=== PATIENT | male | born 1960 | race African-American/Black ===

== ENCOUNTER 2022-03-06 19:49 | Emergency (ER) | payer SELFPAY ==
[~2022-03-06] VITALS: Ht 170.2 cm; Wt 65.8 kg
[~2022-03-06 19:49] MED LIST: ADVAIR 500/501 EA INH; ALBUTEROL SULF8.5 GM; SPIRIVA18 MCG INH
[2022-03-06] MEDS ORDERED: ASPIRIN 325 MG TAB PO ONE (20:00)
[2022-03-06] MEDS ORDERED: METHYLPREDNISOLONE SOD SUCC 125 MG/2ML VIAL IV ONE (20:00)
[2022-03-06] MEDS ORDERED: SODIUM CHLORIDE FLUSH 10 ML SYR IV PRN (20:00)
[2022-03-06] MEDS ORDERED: ALBUTEROL/IPRATROPIUM 3 ML NEB NEB ONE (20:00)
[2022-03-06] MEDS ORDERED: PREDNISONE 20 MG TAB ONE (22:49)
[2022-03-08] MEDS ORDERED: LORATADINE10 MG PO (09:43)
[2022-03-08] MEDS ORDERED: VENTOLIN HFA18 GM INH (09:43)
== END 2022-03-06 21:33 | disposition left against medical advice (07) ==
LOC: ER 20:00
DX: R06.00 Dyspnea, unspecified (principal); J44.9 Chronic obstructive pulmonary disease, unspecified; E78.5 Hyperlipidemia, unspecified; F17.210 Nicotine dependence, cigarettes, uncomplicated
CPT/HCPCS: 93005; 99283; J2930; J7512

== ENCOUNTER 2022-03-06 22:11 | Inpatient (IN) | payer SELFPAY ==
[~2022-03-06] VITALS: Ht 170.2 cm; Wt 65.8 kg
[2022-03-06] MEDS ORDERED: SODIUM CHLORIDE FLUSH 10 ML SYR IV PRN (22:17)
[2022-03-06] MEDS ORDERED: METHYLPREDNISOLONE SOD SUCC 125 MG/2ML VIAL IV ONE (22:30)
[2022-03-06] MEDS ORDERED: ALBUTEROL/IPRATROPIUM 3 ML NEB NEB PRN (22:30)
[2022-03-06] MEDS ORDERED: ASPIRIN 325 MG TAB PO ONE (22:30)
[2022-03-06 22:37] LABS: BASOPHILS # (AUTO) 0.1 (0.0-0.1); BASOPHILS % 0.4 % (0.0-1.0); EOSINOPHILS # (AUTO) 0.1 (0.0-0.4); EOSINOPHILS % 1.2 % (0.0-6.0); HEMATOCRIT 47.8 % (38.2-49.6); HEMOGLOBIN 14.4 g/dL (14.0-18.0); LYMPHOCYTES # (AUTO) 1.1 (1.0-3.2); LYMPHOCYTES % 9.5 % (18.0-39.1); MEAN CORPUSCULAR HEMOGLOBIN 28.8 pg (28-32); MEAN CORPUSCULAR HGB CONC 30.1 g/dL (31-35); MEAN CORPUSCULAR VOLUME 95.6 fL (81-99); MONOCYTES # (AUTO) 0.8 (0.2-0.8); MONOCYTES % 6.7 % (4.4-11.3); NEUTROPHILS # (AUTO) 9.5 (2.1-6.9); NEUTROPHILS % 81.8 % (38.7-80.0); PLATELET COUNT 224 x10e3/uL (140-360); RED CELL DISTRIBUTION WIDTH 13.6 % (11.7-14.4)
[2022-03-06 22:44] LABS: INR 0.88; PARTIAL THROMBOPLASTIN TIME 26.8 seconds (23.8-35.5); PROTHROMBIN TIME 12.8 seconds (11.9-14.5)
[2022-03-06] MEDS ORDERED: PREDNISONE 20 MG TAB PO ONE (22:45)
[2022-03-06 22:53] LABS: ALBUMIN 4.1 g/dL (3.5-5.0); ANION GAP 15.7 mmol/L (8-16); CALCIUM 9.6 mg/dL (8.4-10.2); CREATININE, SERUM 1.05 mg/dL (0.72-1.25); POTASSIUM 3.7 mmol/L (3.5-5.1)
[2022-03-06] MEDS ORDERED: ONDANSETRON HCL INJ 2MG/ML 2ML 2 MG/ML VIAL IV PRN (23:45)
[2022-03-06] MEDS ORDERED: ASPIRIN 81 MG CHEW TAB PO ONE (23:45)
[2022-03-07] VITALS (8 sets, daily range): BP systolic 99–137; BP diastolic 69–90
[2022-03-07] MEDS ORDERED: DOCUSATE SODIUM 100 MG CAP PO PRN (01:00)
[2022-03-07] MEDS ORDERED: ONDANSETRON HCL INJ 2MG/ML 2ML 2 MG/ML VIAL IV PRN (01:00)
[2022-03-07] MEDS ORDERED: ACETAMINOPHEN 325 MG TAB PO PRN (01:00)
[2022-03-07] MEDS: ALBUTEROL/IPRATROPIUM 3 ML NEB NEB SCH ×4 (01:20→19:20)
[2022-03-07] MEDS: SALMETEROL/FLUTICASONE 500/50 INH SCH ×2 (06:39→19:00)
[2022-03-07 06:44] LABS: BASOPHILS % 0.3 % (0.0-1.0); HEMATOCRIT 41.3 % (38.2-49.6); HEMOGLOBIN 12.9 g/dL (14.0-18.0); LYMPHOCYTES # (AUTO) 0.6 (1.0-3.2); MEAN CORPUSCULAR HEMOGLOBIN 28.4 pg (28-32); MEAN CORPUSCULAR HGB CONC 31.2 g/dL (31-35); MEAN CORPUSCULAR VOLUME 90.8 fL (81-99); MONOCYTES # (AUTO) 0.1 (0.2-0.8); MONOCYTES % 1.5 % (4.4-11.3); NEUTROPHILS # (AUTO) 6.6 (2.1-6.9); NEUTROPHILS % 89.8 % (38.7-80.0); PLATELET COUNT 184 x10e3/uL (140-360); RED BLOOD COUNT 4.55 x10e6/uL (4.3-5.7); RED CELL DISTRIBUTION WIDTH 13.9 % (11.7-14.4)
[2022-03-07 07:06] LABS: ALBUMIN 3.7 g/dL (3.5-5.0); ALBUMIN/GLOBULIN RATIO 1.1 (0.8-2.0); ANION GAP 11.1 mmol/L (8-16); CALCIUM 8.9 mg/dL (8.4-10.2); CREATININE, SERUM 0.85 mg/dL (0.72-1.25); POTASSIUM 4.1 mmol/L (3.5-5.1)
[2022-03-07 07:12] LABS: CREATINE KINASE MB 3.7 ng/mL (0-5.0)
[2022-03-07] MEDS ORDERED: SALMETEROL/FLUTICASONE 500/50 INH SCH (09:00)
[2022-03-07 13:12] LABS: CLARITY,URINE SL CLOUDY (CLEAR); COLOR,URINE YELLOW (YELLOW); KETONES,URINE NEGATIVE (NEGATIVE); LEUKOCYTE ESTERASE ,URINE NEGATIVE (NEGATIVE); NITRITE,URINE NEGATIVE (NEGATIVE); PROTEIN,URINE DIPSTICK TRACE (NEGATIVE); URINE UROBILINOGEN 1 mg/dL (0.2 - 1)
[2022-03-07 13:13] LABS: AMPHETAMINES SCREEN,URINE NEGATIVE (NEGATIVE); BENZODIAZEPINES SCREEN,URINE NEGATIVE (NEGATIVE); PHENCYCLIDINE SCREEN,URINE NEGATIVE (NEGATIVE)
[2022-03-07 13:17] LABS: BACTERIA,URINE FEW /HPF; EPITHELIAL CELLS,URINE FEW /LPF; RBC,URINE 0-5 /HPF (0-5); WBC,URINE (MAN) 0-5 /HPF (0-5)
[2022-03-07 13:18] LABS: MUCUS,URINE MODERATE (RARE)
[2022-03-07 17:17] LABS: CREATINE KINASE MB 3.8 ng/mL (0-5.0)
[2022-03-08] MEDS: ALBUTEROL/IPRATROPIUM 3 ML NEB NEB SCH ×2 (06:20)
[2022-03-08] MEDS: SALMETEROL/FLUTICASONE 500/50 INH SCH (06:34)
[2022-03-08] MEDS ORDERED: VENTOLIN HFA18 GM INH (09:43)
[2022-03-08] MEDS ORDERED: LORATADINE10 MG PO (09:43)
[2022-03-08] MEDS ORDERED: ONDANSETRON HCL 4 MG ORAL DISINTEGRATING TAB PO PRN (10:15)
== END 2022-03-08 10:38 | disposition home or self-care (01) | DRG 190 ==
LOC: ER 22:16 → ERHOLD 23:48 → MED/SURG 03-07 01:46 → OBSVTOIN 03-07 15:34
PROVIDERS: ADMIT Internal Medicine; ATTEND Internal Medicine
DX: J44.1 Chronic obstructive pulmonary disease with (acute) exacerbation (principal); J96.21 Acute and chronic respiratory failure with hypoxia; E87.20 Acidosis, unspecified; Z99.81 Dependence on supplemental oxygen; E78.5 Hyperlipidemia, unspecified; Z87.891 Personal history of nicotine dependence; Z20.822 Contact with and (suspected) exposure to COVID-19
CPT/HCPCS: 36415; 71045; 80053; 80307; 81001; 82550; 82553; 83605; 83880; 84484; 85025; 85610; 85730; 87040; 93005; 94640; 94799; 99284; G0378

== ENCOUNTER 2022-06-10 14:32 | Inpatient (IN) | payer OTHER ==
[~2022-06-10] VITALS: Ht 170.2 cm; Wt 56.4 kg
[~2022-06-10 14:32] MED LIST changes: +LORATADINE10 MG PO; +VENTOLIN HFA18 GM INH
[2022-06-10] MEDS ORDERED: METHYLPREDNISOLONE SOD SUCC 125 MG/2ML VIAL IV STA (15:12)
[2022-06-10] MEDS ORDERED: ONDANSETRON HCL INJ 2MG/ML 2ML 2 MG/ML VIAL IV STA (15:12)
[2022-06-10] MEDS ORDERED: SODIUM CHLORIDE 0.9% 1000ML 1,000 ML IV STA (15:12)
[2022-06-10] MEDS ORDERED: Morphine 2mg Syringe 2 MG/ML SYR IV STA ×2 (15:12→16:35)
[2022-06-10] MEDS ORDERED: ALBUTEROL/IPRATROPIUM 3 ML NEB NEB ONE (15:15)
[2022-06-10 15:27] LABS: BASOPHILS # (AUTO) 0.1 (0.0-0.1); BASOPHILS % 0.5 % (0.0-1.0); EOSINOPHILS # (AUTO) 0.1 (0.0-0.4); EOSINOPHILS % 0.8 % (0.0-6.0); HEMATOCRIT 44.4 % (38.2-49.6); HEMOGLOBIN 14.2 g/dL (14.0-18.0); LYMPHOCYTES # (AUTO) 1.1 (1.0-3.2); LYMPHOCYTES % 9.1 % (18.0-39.1); MEAN CORPUSCULAR HEMOGLOBIN 29.2 pg (28-32); MEAN CORPUSCULAR VOLUME 91.2 fL (81-99); MONOCYTES # (AUTO) 1.1 (0.2-0.8); NEUTROPHILS # (AUTO) 9.6 (2.1-6.9); NEUTROPHILS % 80.2 % (38.7-80.0); PLATELET COUNT 221 x10e3/uL (140-360); RED BLOOD COUNT 4.87 x10e6/uL (4.3-5.7); RED CELL DISTRIBUTION WIDTH 14.4 % (11.7-14.4)
[2022-06-10 15:38] LABS: INR 1.15; PROTHROMBIN TIME 14.9 seconds (11.9-14.5)
[2022-06-10 15:39] LABS: PARTIAL THROMBOPLASTIN TIME 31.4 seconds (23.8-35.5)
[2022-06-10 15:46] LABS: ALBUMIN/GLOBULIN RATIO 0.9 (0.8-2.0); ANION GAP 13.9 mmol/L (8-16); CALCIUM 9.7 mg/dL (8.4-10.2); MAGNESIUM 1.8 MG/DL (1.3-2.1); POTASSIUM 3.9 mmol/L (3.5-5.1)
[2022-06-10 15:54] LABS: CREATINE KINASE MB 1.6 ng/mL (0-5.0)
[2022-06-10 15:55] LABS: B-TYPE NATRIURETIC PEPTIDE2 55.4 pg/mL (0-100)
[2022-06-10] MEDS ORDERED: IOPAMIDOL 370 MG/ML 100 ML INFUS..BTL INJ ONE (16:30)
[2022-06-10] MEDS ORDERED: Morphine 2mg Syringe 2 MG/ML SYR ONE (16:54)
[2022-06-10] MEDS ORDERED: ALBUTEROL SULFATE HFA 8GM INHALATION AEROSOL INH PRN (17:30)
[2022-06-10] MEDS ORDERED: ALBUTEROL/IPRATROPIUM 3 ML NEB NEB PRN (17:30)
[2022-06-10] MEDS ORDERED: ZOLPIDEM TARTRATE 5 MG TAB PO PRN (17:30)
[2022-06-10] MEDS: SODIUM CHLORIDE 0.9% 1000ML 1,000 ML IV SCH (18:15)
[2022-06-10] MEDS: SALMETEROL/FLUTICASONE 500/50 INH SCH (21:00)
[2022-06-11] VITALS (15 sets, daily range): BP systolic 78–98; BP diastolic 58–68
[2022-06-11] MEDS: SODIUM CHLORIDE 0.9% 1000ML 1,000 ML IV SCH (04:10)
[2022-06-11] MEDS: METHYLPREDNISOLONE SOD SUCC 40 MG/ML VIAL 1ML IV SCH ×2 (05:25→16:16)
[2022-06-11] MEDS: ACETAMINOPHEN 325 MG TAB PO PRN ×2 (08:49→18:46)
[2022-06-11] MEDS: SALMETEROL/FLUTICASONE 500/50 INH SCH ×2 (09:00→21:00)
[2022-06-11] MEDS: TIOTROPIUM 18 MCG INH POWDER INH SCH (09:00)
[2022-06-11 15:18] LABS: CLARITY,URINE CLEAR (CLEAR); COLOR,URINE YELLOW (YELLOW); LEUKOCYTE ESTERASE ,URINE NEGATIVE (NEGATIVE); NITRITE,URINE NEGATIVE (NEGATIVE); PROTEIN,URINE DIPSTICK NEGATIVE (NEGATIVE)
[2022-06-11 15:19] LABS: BACTERIA,URINE FEW /HPF; EPITHELIAL CELLS,URINE FEW /LPF; KETONES,URINE NEGATIVE (NEGATIVE); MUCUS,URINE MANY (RARE); RBC,URINE 0-5 /HPF (0-5); URINE UROBILINOGEN 0.2 mg/dL (0.2 - 1); WBC,URINE (MAN) 0-5 /HPF (0-5)
[2022-06-12] MEDS: METHYLPREDNISOLONE SOD SUCC 40 MG/ML VIAL 1ML IV SCH ×2 (05:56→18:00)
[2022-06-12] MEDS: ACETAMINOPHEN 325 MG TAB PO PRN ×2 (06:05→22:31)
[2022-06-12 06:26] LABS: INR 1.14; PROTHROMBIN TIME 14.8 seconds (11.9-14.5)
[2022-06-12 06:42] LABS: ALBUMIN 2.7 g/dL (3.5-5.0); ALBUMIN/GLOBULIN RATIO 0.8 (0.8-2.0); ANION GAP 10.8 mmol/L (8-16); CALCIUM 8.6 mg/dL (8.4-10.2); CREATININE, SERUM 0.73 mg/dL (0.72-1.25); POTASSIUM 4.8 mmol/L (3.5-5.1)
[2022-06-12] MEDS: TIOTROPIUM 18 MCG INH POWDER INH SCH ×2 (07:57→20:36)
[2022-06-12] MEDS: SALMETEROL/FLUTICASONE 500/50 INH SCH ×2 (09:00→21:00)
[2022-06-12 09:08] LABS: BASOPHILS % 0.1 % (0.0-1.0); HEMOGLOBIN 11.2 g/dL (14.0-18.0); LYMPHOCYTES # (AUTO) 0.4 (1.0-3.2); LYMPHOCYTES % 3.4 % (18.0-39.1); MEAN CORPUSCULAR HEMOGLOBIN 29.1 pg (28-32); MEAN CORPUSCULAR HGB CONC 31.1 g/dL (31-35); MEAN CORPUSCULAR VOLUME 93.5 fL (81-99); MONOCYTES # (AUTO) 0.4 (0.2-0.8); MONOCYTES % 3.5 % (4.4-11.3); NEUTROPHILS # (AUTO) 10.6 (2.1-6.9); NEUTROPHILS % 92.2 % (38.7-80.0); PLATELET COUNT 182 x10e3/uL (140-360); RED BLOOD COUNT 3.85 x10e6/uL (4.3-5.7); RED CELL DISTRIBUTION WIDTH 14.5 % (11.7-14.4)
[2022-06-12 20:30] VITALS: BP 113/92
[2022-06-12 21:00] VITALS: BP 113/92
[2022-06-13 00:35] VITALS: BP 119/82
[2022-06-13 04:14] VITALS: BP 114/81
[2022-06-13] MEDS ORDERED: METHYLPREDNISOLONE SOD SUCC 40 MG/ML VIAL 1ML IV SCH (06:00)
[2022-06-13] MEDS: SALMETEROL/FLUTICASONE 500/50 INH SCH (07:06)
[2022-06-13] MEDS: TIOTROPIUM 18 MCG INH POWDER INH SCH (07:06)
[2022-06-13 07:47] VITALS: BP 108/77
[2022-06-13 09:53] VITALS: BP 108/77
[2022-06-13] MEDS ORDERED: PREDNISONE5 MG PO (10:15)
[2022-06-13] MEDS ORDERED: ACETAMINOPHEN325 M1 PO (10:15)
[2022-06-13] MEDS ORDERED: AZITHROMYCIN250 MG PO (10:15)
[2022-06-13 11:25] VITALS: BP 100/73
== END 2022-06-13 12:01 | disposition home or self-care (01) | DRG 189 ==
LOC: ER 14:50 → ERHOLD 18:09 → ICU 06-11 00:25 → MED/SURG 06-12 20:17
PROVIDERS: ADMIT Internal Medicine; ATTEND Internal Medicine
DX: J96.01 Acute respiratory failure with hypoxia (principal); J44.1 Chronic obstructive pulmonary disease with (acute) exacerbation; N17.9 Acute kidney failure, unspecified; R91.1 Solitary pulmonary nodule; Z53.29 Procedure and treatment not carried out because of patient's decision for other reasons; Z99.81 Dependence on supplemental oxygen; Z87.891 Personal history of nicotine dependence; Z20.822 Contact with and (suspected) exposure to COVID-19
CPT/HCPCS: 36415; 71045; 71260; 80053; 81001; 82550; 82553; 83605; 83735; 83880; 84484; 85025; 85379; 85610; 85730; 87040; 87086; 93005; 94640; 94799; 96360; 99252; 99284; J0456; J0696; J2270; J2405; J2920; J2930; J7030; J7050; Q9967

== ENCOUNTER 2022-08-18 17:59 | Inpatient (IN) | payer OTHER ==
[~2022-08-18] VITALS: Ht 165.1 cm; Wt 54.9 kg
[2022-08-18 00:04] VITALS: BP 108/83; PULSE 104; RESP 15; O2SAT 94
[2022-08-18] MEDS: ALBUTEROL SULF 0.083% NEB SOLN 3 ML NEB NEB SCH (00:25)
[2022-08-18] MEDS: IPRATROPIUM BROMIDE 0.02% 2.5 ML NEB NEB SCH (00:25)
[~2022-08-18 17:59] MED LIST changes: +ACETAMINOPHEN325 M1 PO; +AZITHROMYCIN250 MG PO; +PREDNISONE5 MG PO
[2022-08-18] MEDS ORDERED: SODIUM CHLORIDE 0.9% 1000ML 1,000 ML IV ONE ×2 (18:30→20:15)
[2022-08-18] MEDS ORDERED: METHYLPREDNISOLONE SOD SUCC 125 MG/2ML VIAL IV ONE (18:30)
[2022-08-18] MEDS ORDERED: ALBUTEROL/IPRATROPIUM 3 ML NEB NEB ONE (18:30)
[2022-08-18] MEDS ORDERED: SODIUM CHLORIDE FLUSH 10 ML SYR IV PRN (18:30)
[2022-08-18] MEDS ORDERED: LEVOFLOXACIN 750MG/D5W 150ML 150 ML IV STA (18:33)
[2022-08-18 18:34] LABS: BASOPHILS # (AUTO) 0.1 (0.0-0.1); BASOPHILS % 0.6 % (0.0-1.0); EOSINOPHILS % 0.4 % (0.0-6.0); HEMATOCRIT 40.5 % (38.2-49.6); HEMOGLOBIN 12.8 g/dL (14.0-18.0); LYMPHOCYTES # (AUTO) 0.8 (1.0-3.2); LYMPHOCYTES % 8.9 % (18.0-39.1); MEAN CORPUSCULAR HEMOGLOBIN 28.8 pg (28-32); MEAN CORPUSCULAR HGB CONC 31.6 g/dL (31-35); MONOCYTES # (AUTO) 0.8 (0.2-0.8); MONOCYTES % 8.4 % (4.4-11.3); NEUTROPHILS # (AUTO) 7.3 (2.1-6.9); NEUTROPHILS % 81.3 % (38.7-80.0); PLATELET COUNT 152 x10e3/uL (140-360); RED BLOOD COUNT 4.45 x10e6/uL (4.3-5.7)
[2022-08-18] MEDS ORDERED: LEVOFLOXACIN 750MG/D5W 150ML 150 ML IV ONE (18:41)
[2022-08-18 18:45] LABS: ALBUMIN 3.8 g/dL (3.5-5.0); ANION GAP 15.7 mmol/L (8-16); CALCIUM 9.7 mg/dL (8.4-10.2); CREATININE, SERUM 1.17 mg/dL (0.72-1.25); POTASSIUM 3.7 mmol/L (3.5-5.1)
[2022-08-18] MEDS ORDERED: IOPAMIDOL 370 MG/ML 100 ML INFUS..BTL INJ ONE (19:11)
[2022-08-18 19:20] VITALS: PULSE 106; RESP 21; O2SAT 100
[2022-08-18] MEDS ORDERED: ONDANSETRON HCL INJ 2MG/ML 2ML 2 MG/ML VIAL IV PRN (20:45)
[2022-08-18] MEDS ORDERED: ASPIRIN 81 MG CHEW TAB PO ONE (20:45)
[2022-08-18] MEDS ORDERED: SODIUM CHLORIDE FLUSH 10 ML SYR INJ PRN (20:45)
[2022-08-18 22:00] VITALS: BP 130/59; PULSE 98; RESP 12; TEMP 98.8; O2SAT 93
[2022-08-18 22:30] VITALS: BP 118/83; PULSE 100; RESP 17; TEMP 98.8; O2SAT 96
[2022-08-18 23:00] VITALS: BP 108/83; PULSE 104; RESP 15; O2SAT 94
[2022-08-19] VITALS (22 sets, daily range): BP systolic 87–139; BP diastolic 53–111; PULSE 82–107; RESP 14–22; TEMP 97.7–98.8; O2SAT 88–99
[2022-08-19] MEDS ORDERED: GUAIFENESIN/DEXTROMETHORPHAN LIQD 5 ML UDC NG PRN (00:30)
[2022-08-19] MEDS: IPRATROPIUM BROMIDE 0.02% 2.5 ML NEB NEB SCH ×6 (03:45→23:00)
[2022-08-19] MEDS: ALBUTEROL SULF 0.083% NEB SOLN 3 ML NEB NEB SCH ×6 (03:45→23:00)
[2022-08-19] MEDS: PREDNISONE 20 MG TAB PO SCH ×3 (05:46→20:59)
[2022-08-19] MEDS: Doxycycline IV 100 MG in SODIUM CHLORIDE 0.9% 100 ML IV SCH ×2 (05:46→17:26)
[2022-08-19] MEDS: BUDESONIDE 0.5MG/2 ML NEB INH SCH ×2 (06:30→19:00)
[2022-08-19] MEDS: LORATADINE 10 MG TAB PO SCH (08:20)
[2022-08-19] MEDS: BENZONATATE 100 MG CAP PO SCH ×3 (08:20→20:59)
[2022-08-19] MEDS ORDERED: ENOXAPARIN SOD INJ 40 MG/0.4 ML SYR SC SCH (17:00)
[2022-08-20 01:20] VITALS: BP 129/73; PULSE 79; RESP 18; TEMP 98.1; O2SAT 98
[2022-08-20] MEDS: IPRATROPIUM BROMIDE 0.02% 2.5 ML NEB NEB SCH ×4 (03:00→14:04)
[2022-08-20] MEDS: ALBUTEROL SULF 0.083% NEB SOLN 3 ML NEB NEB SCH ×4 (03:00→14:05)
[2022-08-20 05:31] VITALS: BP 111/74; PULSE 72; RESP 20; TEMP 97.4; O2SAT 100
[2022-08-20] MEDS: PREDNISONE 20 MG TAB PO SCH (06:00)
[2022-08-20] MEDS: Doxycycline IV 100 MG in SODIUM CHLORIDE 0.9% 100 ML IV SCH (06:00)
[2022-08-20 06:46] LABS: CALCIUM 8.7 mg/dL (8.4-10.2); CREATININE, SERUM 0.78 mg/dL (0.72-1.25)
[2022-08-20] MEDS: BUDESONIDE 0.5MG/2 ML NEB INH SCH (07:00)
[2022-08-20 08:13] VITALS: BP 95/74; PULSE 87; RESP 18; TEMP 97.8; O2SAT 95
[2022-08-20] MEDS: BENZONATATE 100 MG CAP PO SCH (09:00)
[2022-08-20] MEDS: LORATADINE 10 MG TAB PO SCH (09:00)
[2022-08-20 09:27] VITALS: BP 95/74; PULSE 87; RESP 18; TEMP 97.8; O2SAT 95
[2022-08-20] MEDS ORDERED: DOXYCYCLINE HY100 MG PO (11:49)
[2022-08-20] MEDS ORDERED: Benzonatate PO (11:49)
[2022-08-20] MEDS ORDERED: PREDNISONE20 MG PO (11:49)
[2022-08-20] MEDS ORDERED: LORATADINE10 MG PO (11:49)
[2022-08-20 13:04] VITALS: BP 113/80; PULSE 89; RESP 18; TEMP 97.8; O2SAT 100
[2022-09-08] MEDS ORDERED: PREDNISONE20 MG PO (09:40)
[2022-09-08] MEDS ORDERED: DOXYCYCLINE HY100 MG PO (09:40)
[2022-09-08] MEDS ORDERED: MIRALAX17 GM PO (09:40)
== END 2022-08-20 14:46 | disposition home or self-care (01) | DRG 190 ==
LOC: ER 18:06 → ERHOLD 20:32 → ICU 21:47 → MED/SURG3 08-19 12:04
PROVIDERS: ADMIT Internal Medicine; ATTEND Internal Medicine
DX: J43.9 Emphysema, unspecified (principal); J96.21 Acute and chronic respiratory failure with hypoxia; N17.9 Acute kidney failure, unspecified; C34.12 Malignant neoplasm of upper lobe, left bronchus or lung; C34.11 Malignant neoplasm of upper lobe, right bronchus or lung; C79.51 Secondary malignant neoplasm of bone; I25.2 Old myocardial infarction; E78.5 Hyperlipidemia, unspecified; R00.0 Tachycardia, unspecified; R74.02 Elevation of levels of lactic acid dehydrogenase [LDH]; R63.4 Abnormal weight loss; Z99.81 Dependence on supplemental oxygen; Z87.891 Personal history of nicotine dependence; Z68.20 Body mass index [BMI] 20.0-20.9, adult; Z20.822 Contact with and (suspected) exposure to COVID-19
CPT/HCPCS: 36415; 71260; 80048; 80053; 83605; 83880; 84484; 85025; 87040; 93005; 94760; 94799; 99285; J1650; J2930; J7030; J7050; J7512; Q9967

== ENCOUNTER 2022-09-04 15:52 | Emergency (ER) | payer OTHER ==
[~2022-09-04] VITALS: Ht 165.1 cm; Wt 54.9 kg
[~2022-09-04 15:52] MED LIST changes: +Benzonatate PO; +DOXYCYCLINE HY100 MG PO; +PREDNISONE20 MG PO
[2022-09-04] MEDS ORDERED: SODIUM CHLORIDE 0.9% 1000ML 1,000 ML IV STA (16:03)
[2022-09-04] MEDS ORDERED: DICYCLOMINE HCL 20 MG/2 ML VIAL IM ONE (16:15)
[2022-09-04 16:22] LABS: BASOPHILS # (AUTO) 0.1 (0.0-0.1); BASOPHILS % 0.5 % (0.0-1.0); EOSINOPHILS # (AUTO) 0.2 (0.0-0.4); EOSINOPHILS % 2.1 % (0.0-6.0); HEMATOCRIT 36.7 % (38.2-49.6); HEMOGLOBIN 11.2 g/dL (14.0-18.0); LYMPHOCYTES # (AUTO) 1.3 (1.0-3.2); LYMPHOCYTES % 13.4 % (18.0-39.1); MEAN CORPUSCULAR HEMOGLOBIN 28.9 pg (28-32); MEAN CORPUSCULAR HGB CONC 30.5 g/dL (31-35); MEAN CORPUSCULAR VOLUME 94.8 fL (81-99); MONOCYTES # (AUTO) 0.6 (0.2-0.8); MONOCYTES % 6.5 % (4.4-11.3); NEUTROPHILS # (AUTO) 7.6 (2.1-6.9); NEUTROPHILS % 77.1 % (38.7-80.0); PLATELET COUNT 90 x10e3/uL (140-360); RED BLOOD COUNT 3.87 x10e6/uL (4.3-5.7); RED CELL DISTRIBUTION WIDTH 15.1 % (11.7-14.4)
[2022-09-04 16:40] LABS: ALBUMIN 3.4 g/dL (3.5-5.0); ALBUMIN/GLOBULIN RATIO 1.3 (0.8-2.0); CALCIUM 8.8 mg/dL (8.4-10.2); CREATININE, SERUM 0.71 mg/dL (0.72-1.25)
[2022-09-04] MEDS ORDERED: IOPAMIDOL 370 MG/ML 100 ML INFUS..BTL INJ ONE (17:32)
[2022-09-04] MEDS ORDERED: DICYCLOMINE HCL20 MG PO (17:34)
[2022-09-04] MEDS ORDERED: ULTRAM 50MG50 MG PO (17:35)
[2022-09-04 19:48] VITALS: BP 121/75; O2SAT 100
[2022-09-08] MEDS ORDERED: DOXYCYCLINE HY100 MG PO (09:40)
[2022-09-08] MEDS ORDERED: PREDNISONE20 MG PO (09:40)
[2022-09-08] MEDS ORDERED: MIRALAX17 GM PO (09:40)
== END 2022-09-04 19:45 | disposition home or self-care (01) ==
LOC: ER 15:59
DX: R10.33 Periumbilical pain (principal); J44.9 Chronic obstructive pulmonary disease, unspecified; E78.5 Hyperlipidemia, unspecified; I25.2 Old myocardial infarction
CPT/HCPCS: 36415; 74177; 80053; 83690; 85025; 99284; J7030; Q9967

== ENCOUNTER 2022-09-06 16:41 | Inpatient (IN) | payer OTHER ==
[~2022-09-06] VITALS: Ht 165.1 cm; Wt 53.5 kg
[~2022-09-06 16:41] MED LIST changes: +DICYCLOMINE HCL20 MG PO; +ULTRAM 50MG50 MG PO
[2022-09-06] MEDS ORDERED: SODIUM CHLORIDE 0.9% 1000ML 1,000 ML IV STA (17:22)
[2022-09-06] MEDS ORDERED: METHYLPREDNISOLONE SOD SUCC 125 MG/2ML VIAL IV STA (17:22)
[2022-09-06] MEDS ORDERED: ALBUTEROL/IPRATROPIUM 3 ML NEB NEB ONE (17:30)
[2022-09-06 17:31] LABS: BASOPHILS % 0.4 % (0.0-1.0); EOSINOPHILS # (AUTO) 0.2 (0.0-0.4); EOSINOPHILS % 1.9 % (0.0-6.0); HEMATOCRIT 39.2 % (38.2-49.6); HEMOGLOBIN 11.6 g/dL (14.0-18.0); LYMPHOCYTES % 11.2 % (18.0-39.1); MEAN CORPUSCULAR HEMOGLOBIN 28.9 pg (28-32); MEAN CORPUSCULAR HGB CONC 29.6 g/dL (31-35); MEAN CORPUSCULAR VOLUME 97.5 fL (81-99); MONOCYTES # (AUTO) 0.7 (0.2-0.8); MONOCYTES % 8.3 % (4.4-11.3); NEUTROPHILS # (AUTO) 6.9 (2.1-6.9); NEUTROPHILS % 77.9 % (38.7-80.0); PLATELET COUNT 91 x10e3/uL (140-360); RED BLOOD COUNT 4.02 x10e6/uL (4.3-5.7)
[2022-09-06 17:35] VITALS: PULSE 75; RESP 16; O2SAT 99
[2022-09-06 17:41] LABS: ALANINE AMINOTRANSFERASE 20 IU/L (0-55); ALBUMIN 3.6 g/dL (3.5-5.0); ALBUMIN/GLOBULIN RATIO 1.2 (0.8-2.0); ALKALINE PHOSPHATASE 101 IU/L (40-150); ANION GAP 10.4 mmol/L (8-16); BLOOD UREA NITROGEN 10 mg/dL (7-26); BUN/CREATININE RATIO 14 (6-25); CALCIUM 9.4 mg/dL (8.4-10.2); CHLORIDE 97 mmol/L (98-107); CREATINE KINASE 59 IU/L (30-200); CREATININE, SERUM 0.74 mg/dL (0.72-1.25); GLUCOSE 83 mg/dL (74-118); MAGNESIUM 2.1 MG/DL (1.3-2.1); POTASSIUM 4.4 mmol/L (3.5-5.1); SODIUM 146 mmol/L (136-145)
[2022-09-06 17:46] LABS: CARBON DIOXIDE 43 mmol/L (22-29); INR 0.9; PROTHROMBIN TIME 12.7 seconds (11.9-14.5)
[2022-09-06 18:38] LABS: ABG PCO2 81 mmHg (35-45); ABG PO2 66 mmHg (80-105)
[2022-09-06 18:39] LABS: ABG HCO3 41 mmol/L (22-26); ABG TCO2 43
[2022-09-06 19:15] LABS: AMPHETAMINES SCREEN,URINE NEGATIVE (NEGATIVE); BENZODIAZEPINES SCREEN,URINE NEGATIVE (NEGATIVE); CLARITY,URINE SL CLOUDY (CLEAR); COLOR,URINE AMBER (YELLOW); KETONES,URINE NEGATIVE (NEGATIVE); LEUKOCYTE ESTERASE ,URINE NEGATIVE (NEGATIVE); NITRITE,URINE NEGATIVE (NEGATIVE); PHENCYCLIDINE SCREEN,URINE NEGATIVE (NEGATIVE); PROTEIN,URINE DIPSTICK NEGATIVE (NEGATIVE); URINE UROBILINOGEN 0.2 mg/dL (0.2 - 1)
[2022-09-06 19:26] LABS: RBC,URINE 0-5 /HPF (0-5)
[2022-09-06 19:27] LABS: AMORPHOUS SEDIMENT,URINE MODERATE (FEW); BACTERIA,URINE MODERATE /HPF; MUCUS,URINE FEW (RARE)
[2022-09-06 20:30] VITALS: BP 108/84; PULSE 129; RESP 20; TEMP 98.1; O2SAT 73
[2022-09-06 21:00] VITALS: BP 108/84; PULSE 129; RESP 20; TEMP 98.1; O2SAT 73
[2022-09-07] VITALS (11 sets, daily range): BP systolic 107–132; BP diastolic 73–93; PULSE 70–96; RESP 16–19; TEMP 98–98.4; O2SAT 95–99
[2022-09-07] MEDS: METHYLPREDNISOLONE SOD SUCC 40 MG/ML VIAL 1ML IV SCH ×4 (06:38→17:12)
[2022-09-07] MEDS: ALBUTEROL/IPRATROPIUM 3 ML NEB NEB SCH ×5 (07:00→23:00)
[2022-09-07] MEDS ORDERED: SODIUM CHLORIDE 0.9% 100 ML ONE (11:13)
[2022-09-07] MEDS ORDERED: IOPAMIDOL 370 MG/ML 100 ML INFUS..BTL INJ ONE (11:13)
[2022-09-07] MEDS ORDERED: KETOROLAC TROMETHAMINE 30 MG/ML VIAL IV STA (11:56)
[2022-09-07] MEDS ORDERED: LACTULOSE SYRUP 20 GM/30 ML UDC PO ONE ×2 (12:00→21:45)
[2022-09-07] MEDS: DOXYCYCLINE HYCLATE TABLET 100 MG TAB PO SCH (12:28)
[2022-09-07 13:05] LABS: HEMATOCRIT 32.7 % (38.2-49.6); HEMOGLOBIN 10.1 g/dL (14.0-18.0); LYMPHOCYTES # (AUTO) 0.3 (1.0-3.2); LYMPHOCYTES % 5.8 % (18.0-39.1); MEAN CORPUSCULAR HEMOGLOBIN 28.9 pg (28-32); MEAN CORPUSCULAR HGB CONC 30.9 g/dL (31-35); MEAN CORPUSCULAR VOLUME 93.4 fL (81-99); MONOCYTES # (AUTO) 0.1 (0.2-0.8); MONOCYTES % 2.2 % (4.4-11.3); NEUTROPHILS # (AUTO) 5.4 (2.1-6.9); NEUTROPHILS % 91.3 % (38.7-80.0); RED CELL DISTRIBUTION WIDTH 14.8 % (11.7-14.4)
[2022-09-07 13:09] LABS: PLATELET COUNT 90 x10e3/uL (140-360)
[2022-09-07 13:22] LABS: CREATINE KINASE 48 IU/L (30-200)
[2022-09-07 13:39] LABS: ANION GAP 11.2 mmol/L (8-16); CALCIUM 8.7 mg/dL (8.4-10.2); CREATININE, SERUM 0.65 mg/dL (0.72-1.25); POTASSIUM 4.2 mmol/L (3.5-5.1)
[2022-09-07] MEDS: POLYETHYLENE GLYCOL 3350 17 GM PACK PO SCH (17:00)
[2022-09-07] MEDS: ENOXAPARIN SOD INJ 40 MG/0.4 ML SYR SC SCH (17:00)
[2022-09-08] VITALS: BP 124/80; PULSE 98; RESP 17; TEMP 98; O2SAT 99
[2022-09-08] MEDS: ALBUTEROL/IPRATROPIUM 3 ML NEB NEB SCH ×4 (02:13→15:00)
[2022-09-08] MEDS: METHYLPREDNISOLONE SOD SUCC 40 MG/ML VIAL 1ML IV SCH ×3 (03:44→12:00)
[2022-09-08 04:00] VITALS: BP 116/77; PULSE 99; RESP 17; TEMP 97.7; O2SAT 100
[2022-09-08 07:41] VITALS: BP 98/62; PULSE 99; RESP 15; TEMP 97.8; O2SAT 100
[2022-09-08 07:45] VITALS: PULSE 89; RESP 18; O2SAT 92
[2022-09-08 08:12] VITALS: BP 98/62; PULSE 99; RESP 15; TEMP 97.8; O2SAT 100
[2022-09-08] MEDS: DOXYCYCLINE HYCLATE TABLET 100 MG TAB PO SCH (08:34)
[2022-09-08] MEDS: POLYETHYLENE GLYCOL 3350 17 GM PACK PO SCH ×2 (08:35→17:00)
[2022-09-08] MEDS ORDERED: DOXYCYCLINE HY100 MG PO (09:40)
[2022-09-08] MEDS ORDERED: MIRALAX17 GM PO (09:40)
[2022-09-08] MEDS ORDERED: PREDNISONE20 MG PO (09:40)
[2022-09-08 11:59] VITALS: PULSE 83; RESP 16; TEMP 98.2; O2SAT 94
[2022-09-08] MEDS: ENOXAPARIN SOD INJ 40 MG/0.4 ML SYR SC SCH (17:00)
== END 2022-09-08 17:27 | disposition home or self-care (01) | DRG 191 ==
LOC: ER 16:48 → ERHOLD 19:37 → MED/SURG3 20:33 → OBSVTOIN 09-07 16:05
PROVIDERS: ADMIT Family Medicine Adult Medicine; ATTEND Family Medicine Adult Medicine
DX: J44.1 Chronic obstructive pulmonary disease with (acute) exacerbation (principal); C34.90 Malignant neoplasm of unspecified part of unspecified bronchus or lung; C79.51 Secondary malignant neoplasm of bone; R91.8 Other nonspecific abnormal finding of lung field; I25.2 Old myocardial infarction; K59.00 Constipation, unspecified; E78.5 Hyperlipidemia, unspecified; Z99.81 Dependence on supplemental oxygen; Z20.822 Contact with and (suspected) exposure to COVID-19; Z87.891 Personal history of nicotine dependence
CPT/HCPCS: 0223U; 36415; 36600; 71045; 74018; 80048; 80053; 80307; 81001; 82550; 82553; 82805; 83690; 83735; 83880; 84484; 85025; 85610; 85730; 87086; 94640; 94760; 94799; 99284; G0378; J1885; J2930; J7030; J7050; Q9967

== ENCOUNTER 2022-09-12 19:41 | Emergency (ER) | payer OTHER ==
[~2022-09-12] VITALS: Ht 165.1 cm; Wt 53.5 kg
[~2022-09-12 19:41] MED LIST changes: +MIRALAX17 GM PO
[2022-09-12] MEDS ORDERED: SODIUM CHLORIDE 0.9% 1000ML 1,000 ML IV STA (19:57)
[2022-09-12 20:25] LABS: BASOPHILS % 0.2 % (0.0-1.0); EOSINOPHILS # (AUTO) 0.1 (0.0-0.4); EOSINOPHILS % 0.9 % (0.0-6.0); HEMATOCRIT 35.1 % (38.2-49.6); HEMOGLOBIN 10.6 g/dL (14.0-18.0); LYMPHOCYTES # (AUTO) 0.9 (1.0-3.2); LYMPHOCYTES % 7.9 % (18.0-39.1); MEAN CORPUSCULAR HEMOGLOBIN 28.9 pg (28-32); MEAN CORPUSCULAR HGB CONC 30.2 g/dL (31-35); MEAN CORPUSCULAR VOLUME 95.6 fL (81-99); MONOCYTES # (AUTO) 1.4 (0.2-0.8); MONOCYTES % 12.6 % (4.4-11.3); NEUTROPHILS # (AUTO) 8.8 (2.1-6.9); PLATELET COUNT 102 x10e3/uL (140-360); RED BLOOD COUNT 3.67 x10e6/uL (4.3-5.7); RED CELL DISTRIBUTION WIDTH 14.6 % (11.7-14.4)
[2022-09-12] MEDS ORDERED: PIPERACILLIN/TAZOBACTAM 3.375 GM VIAL ONE (20:35)
[2022-09-12 20:42] LABS: ALBUMIN 3.2 g/dL (3.5-5.0); ALBUMIN/GLOBULIN RATIO 1.1 (0.8-2.0); CALCIUM 8.4 mg/dL (8.4-10.2); CREATININE, SERUM 0.69 mg/dL (0.72-1.25)
[2022-09-12 20:48] LABS: CREATINE KINASE MB 5.9 ng/mL (0-5.0)
[2022-09-12] MEDS ORDERED: METOPROLOL TARTRATE INJ 1 MG/ML VIAL IV STA (21:07)
[2022-09-12 23:13] VITALS: BP 109/77; PULSE 78; RESP 18; TEMP 98.3
[2022-09-12 23:55] VITALS: O2SAT 100
== END 2022-09-12 23:40 | disposition other institution (70) ==
LOC: ER 19:51
DX: R09.02 Hypoxemia (principal); J44.9 Chronic obstructive pulmonary disease, unspecified; E78.5 Hyperlipidemia, unspecified; R94.31 Abnormal electrocardiogram [ECG] [EKG]; I25.2 Old myocardial infarction; Z20.822 Contact with and (suspected) exposure to COVID-19
CPT/HCPCS: 36415; 71045; 80053; 82550; 82553; 83605; 83690; 83880; 84484; 85025; 87040; 93005; 99285; J2543; J7030; U0002

== ENCOUNTER 2022-10-05 16:35 | Inpatient (IN) | payer MEDICARE, MEDICAID ==
[~2022-10-05] VITALS: Ht 165.1 cm; Wt 53.5 kg
[2022-10-05 17:23] LABS: BASOPHILS % 0.5 % (0.0-1.0); EOSINOPHILS # (AUTO) 0.3 (0.0-0.4); EOSINOPHILS % 3.2 % (0.0-6.0); HEMOGLOBIN 10.9 g/dL (14.0-18.0); LYMPHOCYTES % 12.1 % (18.0-39.1); MEAN CORPUSCULAR HEMOGLOBIN 28.6 pg (28-32); MEAN CORPUSCULAR HGB CONC 30.3 g/dL (31-35); MEAN CORPUSCULAR VOLUME 94.5 fL (81-99); MONOCYTES # (AUTO) 0.7 (0.2-0.8); MONOCYTES % 8.2 % (4.4-11.3); NEUTROPHILS # (AUTO) 6.4 (2.1-6.9); NEUTROPHILS % 75.8 % (38.7-80.0); PLATELET COUNT 124 x10e3/uL (140-360); RED BLOOD COUNT 3.81 x10e6/uL (4.3-5.7); RED CELL DISTRIBUTION WIDTH 15.3 % (11.7-14.4)
[2022-10-05 17:38] LABS: ALANINE AMINOTRANSFERASE 12 IU/L (0-55); ALBUMIN 3.3 g/dL (3.5-5.0); ALBUMIN/GLOBULIN RATIO 1.1 (0.8-2.0); ALKALINE PHOSPHATASE 65 IU/L (40-150); ANION GAP 12.5 mmol/L (8-16); BLOOD UREA NITROGEN 14 mg/dL (7-26); BUN/CREATININE RATIO 19 (6-25); CALCIUM 9.1 mg/dL (8.4-10.2); CARBON DIOXIDE 38 mmol/L (22-29); CHLORIDE 97 mmol/L (98-107); CREATINE KINASE 49 IU/L (30-200); CREATININE, SERUM 0.74 mg/dL (0.72-1.25); GLUCOSE 76 mg/dL (74-118); POTASSIUM 3.5 mmol/L (3.5-5.1); SODIUM 144 mmol/L (136-145)
[2022-10-05] MEDS ORDERED: ONDANSETRON HCL INJ 2MG/ML 2ML 2 MG/ML VIAL IV PRN (18:45)
[2022-10-05] MEDS ORDERED: METHYLPREDNISOLONE SOD SUCC 125 MG/2ML VIAL IV ONE (18:45)
[2022-10-05] MEDS ORDERED: DEXAMETHASONE SOD PHOS 10 MG/1 ML VIAL IV ONE (19:00)
[2022-10-05] MEDS ORDERED: ALBUTEROL/IPRATROPIUM 3 ML NEB NEB ONE (19:00)
[2022-10-05 19:05] VITALS: PULSE 98; RESP 16; O2SAT 100
[2022-10-05] MEDS ORDERED: CEFTRIAXONE 1 GM VIAL IM ONE (19:45)
[2022-10-05 23:05] VITALS: BP 113/83; PULSE 96; RESP 20; TEMP 98.4; O2SAT 100
[2022-10-05 23:45] VITALS: PULSE 96; RESP 18; O2SAT 100
[2022-10-06] VITALS (11 sets, daily range): BP systolic 111–126; BP diastolic 71–87; PULSE 80–106; RESP 16–20; TEMP 97.8–98.4; O2SAT 98–100
[2022-10-06] MEDS ORDERED: SYMBICORT 80-10.2 GM INH (00:41)
[2022-10-06 05:41] LABS: BASOPHILS % 0.1 % (0.0-1.0); HEMATOCRIT 33.2 % (38.2-49.6); LYMPHOCYTES # (AUTO) 0.3 (1.0-3.2); LYMPHOCYTES % 4.2 % (18.0-39.1); MEAN CORPUSCULAR HEMOGLOBIN 28.5 pg (28-32); MEAN CORPUSCULAR HGB CONC 30.1 g/dL (31-35); MEAN CORPUSCULAR VOLUME 94.6 fL (81-99); MONOCYTES # (AUTO) 0.1 (0.2-0.8); MONOCYTES % 0.8 % (4.4-11.3); NEUTROPHILS # (AUTO) 6.8 (2.1-6.9); NEUTROPHILS % 94.3 % (38.7-80.0); PLATELET COUNT 126 x10e3/uL (140-360); RED BLOOD COUNT 3.51 x10e6/uL (4.3-5.7)
[2022-10-06 06:10] LABS: ANION GAP 12.6 mmol/L (8-16); CALCIUM 8.6 mg/dL (8.4-10.2); CREATININE, SERUM 0.71 mg/dL (0.72-1.25); POTASSIUM 3.6 mmol/L (3.5-5.1)
[2022-10-06 06:26] LABS: MAGNESIUM 1.6 MG/DL (1.3-2.1)
[2022-10-06 06:28] LABS: FERRITIN 504.92 ng/mL (21.81-274.66); THYROID STIMULATING HORMONE 0.165 uIU/mL (0.350-4.940)
[2022-10-06] MEDS: DOCUSATE SODIUM 100 MG CAP PO SCH (08:33)
[2022-10-06] MEDS: SENNOSIDES 8.6 MG TAB PO SCH (08:33)
[2022-10-06] MEDS: PREDNISONE 20 MG TAB PO SCH (08:33)
[2022-10-06] MEDS ORDERED: MAGNESIUM SULFATE 2GM/50ML 50 ML IV ONE (09:30)
[2022-10-06] MEDS ORDERED: IOPAMIDOL 370 MG/ML 100 ML INFUS..BTL INJ ONE (11:22)
[2022-10-06 15:14] LABS: CREATINE KINASE 52 IU/L (30-200)
[2022-10-06] MEDS: ACETAMINOPHEN 325 MG TAB PO PRN (20:32)
[2022-10-06] MEDS: ALBUTEROL/IPRATROPIUM 3 ML NEB NEB PRN (22:15)
[2022-10-07] VITALS (10 sets, daily range): BP systolic 107–120; BP diastolic 76–85; PULSE 85–103; RESP 17–20; TEMP 97.5–98; O2SAT 96–98
[2022-10-07 06:50] LABS: BASOPHILS % 0.1 % (0.0-1.0); EOSINOPHILS % 0.1 % (0.0-6.0); HEMOGLOBIN 9.3 g/dL (14.0-18.0); LYMPHOCYTES # (AUTO) 0.8 (1.0-3.2); MEAN CORPUSCULAR HEMOGLOBIN 28.4 pg (28-32); MEAN CORPUSCULAR VOLUME 94.5 fL (81-99); MONOCYTES % 13.3 % (4.4-11.3); NEUTROPHILS # (AUTO) 5.4 (2.1-6.9); NEUTROPHILS % 75.4 % (38.7-80.0); PLATELET COUNT 113 x10e3/uL (140-360); RED BLOOD COUNT 3.28 x10e6/uL (4.3-5.7); RED CELL DISTRIBUTION WIDTH 14.6 % (11.7-14.4)
[2022-10-07 07:24] LABS: ANION GAP 10.7 mmol/L (8-16); CALCIUM 8.6 mg/dL (8.4-10.2); CREATININE, SERUM 0.71 mg/dL (0.72-1.25); POTASSIUM 3.7 mmol/L (3.5-5.1)
[2022-10-07] MEDS: SENNOSIDES 8.6 MG TAB PO SCH (10:35)
[2022-10-07] MEDS: PREDNISONE 20 MG TAB PO SCH (10:35)
[2022-10-07] MEDS: DOCUSATE SODIUM 100 MG CAP PO SCH (10:35)
[2022-10-07] MEDS: ACETAMINOPHEN 325 MG TAB PO PRN (14:40)
[2022-10-08] VITALS (10 sets, daily range): BP systolic 94–116; BP diastolic 67–88; PULSE 79–107; RESP 16–18; TEMP 97.6–98.8; O2SAT 94–100
[2022-10-08] MEDS: DOCUSATE SODIUM 100 MG CAP PO SCH (09:00)
[2022-10-08] MEDS: SENNOSIDES 8.6 MG TAB PO SCH (09:32)
[2022-10-08] MEDS: PREDNISONE 20 MG TAB PO SCH (09:32)
[2022-10-08] MEDS: ALBUTEROL/IPRATROPIUM 3 ML NEB NEB PRN (14:30)
[2022-10-08] MEDS: ACETAMINOPHEN 325 MG TAB PO PRN (20:29)
[2022-10-09] VITALS (10 sets, daily range): BP systolic 101–128; BP diastolic 72–85; PULSE 73–117; RESP 18–19; TEMP 97–98.6; O2SAT 84–100
[2022-10-09 06:26] LABS: BASOPHILS % 0.1 % (0.0-1.0); EOSINOPHILS # (AUTO) 0.1 (0.0-0.4); EOSINOPHILS % 0.7 % (0.0-6.0); HEMATOCRIT 31.3 % (38.2-49.6); LYMPHOCYTES # (AUTO) 1.3 (1.0-3.2); LYMPHOCYTES % 15.9 % (18.0-39.1); MEAN CORPUSCULAR HEMOGLOBIN 28.6 pg (28-32); MEAN CORPUSCULAR HGB CONC 28.8 g/dL (31-35); MEAN CORPUSCULAR VOLUME 99.4 fL (81-99); MONOCYTES # (AUTO) 1.1 (0.2-0.8); MONOCYTES % 12.7 % (4.4-11.3); NEUTROPHILS # (AUTO) 5.9 (2.1-6.9); NEUTROPHILS % 70.1 % (38.7-80.0); PLATELET COUNT 104 x10e3/uL (140-360); RED BLOOD COUNT 3.15 x10e6/uL (4.3-5.7); RED CELL DISTRIBUTION WIDTH 14.7 % (11.7-14.4)
[2022-10-09 06:43] LABS: INR 1.11; PROTHROMBIN TIME 14.8 seconds (11.9-14.5)
[2022-10-09 06:44] LABS: PARTIAL THROMBOPLASTIN TIME 27.2 seconds (23.8-35.5)
[2022-10-09] MEDS: ALBUTEROL/IPRATROPIUM 3 ML NEB NEB PRN ×3 (07:20→20:30)
[2022-10-09 07:29] LABS: ANION GAP 8.4 mmol/L (8-16); CALCIUM 8.5 mg/dL (8.4-10.2); CREATININE, SERUM 0.62 mg/dL (0.72-1.25); POTASSIUM 4.4 mmol/L (3.5-5.1)
[2022-10-09] MEDS: SENNOSIDES 8.6 MG TAB PO SCH (08:51)
[2022-10-09] MEDS: DOCUSATE SODIUM 100 MG CAP PO SCH (08:51)
[2022-10-09] MEDS: PREDNISONE 20 MG TAB PO SCH (08:51)
[2022-10-09] MEDS ORDERED: GADOBENATE DIMEGLUMINE 0 ML IV ONE (09:16)
[2022-10-09] MEDS: ACETAMINOPHEN 325 MG TAB PO PRN (12:58)
[2022-10-09] MEDS: BUDESONIDE/FORMOTEROL 160/4.5MCG INHALER INH SCH (16:52)
[2022-10-09] MEDS ORDERED: ONDANSETRON HCL 4 MG ORAL DISINTEGRATING TAB PO PRN (18:30)
[2022-10-09] MEDS: ALBUTEROL SULFATE HFA 8GM INHALATION AEROSOL INH PRN (18:35)
[2022-10-09] MEDS ORDERED: QUETIAPINE FUMARATE 25 MG TAB PO SCH (21:00)
[2022-10-10 00:28] VITALS: BP 110/78; PULSE 103; RESP 18; TEMP 97.6
[2022-10-10 06:28] LABS: ANION GAP 10.2 mmol/L (8-16); CALCIUM 8.8 mg/dL (8.4-10.2); CREATININE, SERUM 0.64 mg/dL (0.72-1.25); POTASSIUM 4.2 mmol/L (3.5-5.1)
[2022-10-10 07:19] VITALS: PULSE 78; RESP 18; O2SAT 94
[2022-10-10] MEDS: ALBUTEROL/IPRATROPIUM 3 ML NEB NEB PRN (07:19)
[2022-10-10] MEDS: BUDESONIDE/FORMOTEROL 160/4.5MCG INHALER INH SCH ×2 (07:19→09:30)
[2022-10-10 08:00] VITALS: BP 110/78; PULSE 79; RESP 18; TEMP 97.6; O2SAT 98
[2022-10-10 08:12] VITALS: BP 120/78; PULSE 99; RESP 19; TEMP 98
[2022-10-10] MEDS: DOCUSATE SODIUM 100 MG CAP PO SCH (09:00)
[2022-10-10] MEDS ORDERED: ACETAZOLAMIDE 250 MG TAB PO ONE (09:15)
[2022-10-10] MEDS: SENNOSIDES 8.6 MG TAB PO SCH (09:30)
[2022-10-10] MEDS: PREDNISONE 20 MG TAB PO SCH (09:30)
[2022-10-10] MEDS: ALBUTEROL SULFATE HFA 8GM INHALATION AEROSOL INH PRN (10:10)
[2022-10-10 11:42] VITALS: BP 106/67; PULSE 102; RESP 19; TEMP 97.7
[2022-10-10] MEDS: ACETAMINOPHEN 325 MG TAB PO PRN (13:50)
[2022-10-10] MEDS ORDERED: DOXYCYCLINE HY100 MG PO (15:06)
[2022-10-10] MEDS ORDERED: PREDNISONE10 MG PO (15:06)
[2022-10-10] MEDS ORDERED: METOPROLOL SUCCINATE 25 MG TAB XL PO ONE (15:30)
[2022-10-10 15:41] VITALS: BP 117/78; PULSE 96; RESP 18; TEMP 98
[2022-10-10] MEDS ORDERED: PROVENTIL HFA6.7 GM INH (18:14)
[2022-10-10] MEDS ORDERED: SYMBICORT 16010.2 GM INH (18:14)
[2022-10-11] MEDS ORDERED: METOPROLOL SUCCINATE 25 MG TAB XL PO SCH (09:00)
== END 2022-10-10 16:50 | disposition home or self-care (01) | DRG 190 ==
LOC: ER 16:40 → ERHOLD 18:39 → MED/SURG3 23:43 → OBSVTOIN 10-09 08:43
PROVIDERS: ADMIT Internal Medicine; ATTEND Internal Medicine
DX: J44.1 Chronic obstructive pulmonary disease with (acute) exacerbation (principal); J96.21 Acute and chronic respiratory failure with hypoxia; C34.92 Malignant neoplasm of unspecified part of left bronchus or lung; C34.91 Malignant neoplasm of unspecified part of right bronchus or lung; C79.51 Secondary malignant neoplasm of bone; E44.0 Moderate protein-calorie malnutrition; Z68.1 Body mass index [BMI] 19.9 or less, adult; I25.2 Old myocardial infarction; I25.10 Atherosclerotic heart disease of native coronary artery without angina pectoris; D69.6 Thrombocytopenia, unspecified; E78.2 Mixed hyperlipidemia; D63.8 Anemia in other chronic diseases classified elsewhere; E05.90 Thyrotoxicosis, unspecified without thyrotoxic crisis or storm; E83.42 Hypomagnesemia; R59.0 Localized enlarged lymph nodes; R16.0 Hepatomegaly, not elsewhere classified; I50.810 Right heart failure, unspecified; Z99.81 Dependence on supplemental oxygen; Z87.891 Personal history of nicotine dependence; Z20.822 Contact with and (suspected) exposure to COVID-19
CPT/HCPCS: 0223U; 36415; 71045; 71260; 76700; 80048; 80053; 82550; 82607; 82728; 83036; 83540; 83735; 84439; 84443; 84466; 84480; 84484; 85025; 85610; 85730; 87040; 93005; 93306; 94640; 94664; 94760; 94799; 99284; G0378; J0696; J1100; J2405; J3475; J7050; J7512; Q9967

== ENCOUNTER 2022-10-20 09:54 | Inpatient (IN) | payer MEDICARE, OTHER ==
[~2022-10-20] VITALS: Ht 165.1 cm; Wt 53.5 kg
[~2022-10-20 09:54] MED LIST changes: +PREDNISONE10 MG PO; +PROVENTIL HFA6.7 GM INH; +SYMBICORT 16010.2 GM INH; +SYMBICORT 80-10.2 GM INH
[2022-10-20] MEDS ORDERED: METHYLPREDNISOLONE SOD SUCC 125 MG/2ML VIAL IV ONE ×2 (10:15→16:00)
[2022-10-20] MEDS ORDERED: ALBUTEROL/IPRATROPIUM 3 ML NEB NEB ONE (10:15)
[2022-10-20 10:28] LABS: BASOPHILS % 0.4 % (0.0-1.0); EOSINOPHILS # (AUTO) 0.1 (0.0-0.4); EOSINOPHILS % 1.1 % (0.0-6.0); HEMATOCRIT 36.2 % (38.2-49.6); HEMOGLOBIN 10.5 g/dL (14.0-18.0); LYMPHOCYTES # (AUTO) 0.9 (1.0-3.2); LYMPHOCYTES % 8.9 % (18.0-39.1); MEAN CORPUSCULAR HEMOGLOBIN 28.5 pg (28-32); MEAN CORPUSCULAR VOLUME 98.1 fL (81-99); MONOCYTES # (AUTO) 0.7 (0.2-0.8); MONOCYTES % 6.9 % (4.4-11.3); NEUTROPHILS # (AUTO) 8.5 (2.1-6.9); NEUTROPHILS % 82.2 % (38.7-80.0); RED BLOOD COUNT 3.69 x10e6/uL (4.3-5.7); RED CELL DISTRIBUTION WIDTH 15.4 % (11.7-14.4)
[2022-10-20] MEDS ORDERED: SODIUM CHLORIDE 0.9% 1000ML 1,000 ML IV ONE (10:30)
[2022-10-20 10:53] LABS: PLATELET COUNT 88 x10e3/uL (140-360)
[2022-10-20 11:05] LABS: ALBUMIN 3.2 g/dL (3.5-5.0); ALBUMIN/GLOBULIN RATIO 1.2 (0.8-2.0); ANION GAP 13.3 mmol/L (8-16); CALCIUM 8.7 mg/dL (8.4-10.2); CREATININE, SERUM 0.62 mg/dL (0.72-1.25); POTASSIUM 3.3 mmol/L (3.5-5.1)
[2022-10-20 11:36] VITALS: PULSE 99; RESP 20; O2SAT 100
[2022-10-20] MEDS ORDERED: ALBUTEROL SULF 0.083% NEB SOLN 3 ML NEB ONE (11:38)
[2022-10-20] MEDS ORDERED: ALBUTEROL SULF 0.083% NEB SOLN 3 ML NEB NEB STA (11:47)
[2022-10-20] MEDS ORDERED: IOPAMIDOL 370 MG/ML 100 ML INFUS..BTL INJ ONE (12:53)
[2022-10-20] MEDS ORDERED: ONDANSETRON HCL INJ 2MG/ML 2ML 2 MG/ML VIAL IV PRN (16:00)
[2022-10-20] MEDS ORDERED: SODIUM CHLORIDE FLUSH 10 ML SYR INJ PRN (16:00)
[2022-10-20] MEDS: LEVOFLOXACIN 750MG/D5W 150ML 150 ML IV SCH (17:15)
[2022-10-20 20:00] VITALS: BP 130/82; PULSE 101; PULSE 108; RESP 20; RESP 21; TEMP 98; O2SAT 95
[2022-10-20] MEDS: ALBUTEROL SULF 0.083% NEB SOLN 3 ML NEB NEB SCH ×2 (20:00→23:00)
[2022-10-20 23:00] VITALS: BP 130/82; PULSE 107; RESP 20; TEMP 98; O2SAT 100
[2022-10-21] VITALS (11 sets, daily range): BP systolic 118–134; BP diastolic 55–95; PULSE 94–114; RESP 17–22; TEMP 97.9–98.6; O2SAT 94–100
[2022-10-21] MEDS: ALBUTEROL/IPRATROPIUM 3 ML NEB NEB SCH ×4 (01:00→19:00)
[2022-10-21] MEDS: ALBUTEROL SULF 0.083% NEB SOLN 3 ML NEB NEB SCH ×6 (03:00→20:30)
[2022-10-21 08:32] LABS: BASOPHILS % 0.2 % (0.0-1.0); EOSINOPHILS # (AUTO) 0.1 (0.0-0.4); EOSINOPHILS % 1.1 % (0.0-6.0); HEMATOCRIT 32.8 % (38.2-49.6); HEMOGLOBIN 9.8 g/dL (14.0-18.0); LYMPHOCYTES # (AUTO) 0.8 (1.0-3.2); LYMPHOCYTES % 8.4 % (18.0-39.1); MEAN CORPUSCULAR HGB CONC 29.9 g/dL (31-35); MONOCYTES # (AUTO) 0.6 (0.2-0.8); MONOCYTES % 6.6 % (4.4-11.3); NEUTROPHILS # (AUTO) 7.4 (2.1-6.9); NEUTROPHILS % 83.3 % (38.7-80.0); PLATELET COUNT 92 x10e3/uL (140-360); RED BLOOD COUNT 3.38 x10e6/uL (4.3-5.7); RED CELL DISTRIBUTION WIDTH 15.4 % (11.7-14.4)
[2022-10-21] MEDS: POLYETHYLENE GLYCOL 3350 17 GM PACK PO SCH ×2 (09:00→16:49)
[2022-10-21] MEDS: BENZONATATE 100 MG CAP PO SCH ×3 (09:00→21:32)
[2022-10-21 09:01] LABS: ALBUMIN 2.9 g/dL (3.5-5.0); ALBUMIN/GLOBULIN RATIO 1.3 (0.8-2.0); ANION GAP 11.1 mmol/L (8-16); CALCIUM 8.7 mg/dL (8.4-10.2); CREATININE, SERUM 0.62 mg/dL (0.72-1.25); POTASSIUM 3.1 mmol/L (3.5-5.1)
[2022-10-21] MEDS: ACETAMINOPHEN 325 MG TAB PO PRN ×2 (09:32→18:07)
[2022-10-21] MEDS ORDERED: METHYLPREDNISOLONE SOD SUCC 125 MG/2ML VIAL IV SCH (14:00)
[2022-10-21] MEDS ORDERED: METHYLPREDNISOLONE SOD SUCC 40 MG/ML VIAL 1ML IV SCH (14:30)
[2022-10-21] MEDS: LEVOFLOXACIN 750MG/D5W 150ML 150 ML IV SCH (16:42)
[2022-10-21] MEDS ORDERED: ENOXAPARIN 30 MG/0.3 ML SYR SC SCH (17:00)
[2022-10-21] MEDS: METHYLPREDNISOLONE SOD SUCC 40 MG/ML VIAL 1ML IV SCH (21:59)
[2022-10-22] VITALS (11 sets, daily range): BP systolic 116–131; BP diastolic 76–93; PULSE 81–106; RESP 18–20; TEMP 97.9–98.6; O2SAT 94–99
[2022-10-22] MEDS: METHYLPREDNISOLONE SOD SUCC 40 MG/ML VIAL 1ML IV SCH ×3 (06:00→21:45)
[2022-10-22] MEDS: ALBUTEROL/IPRATROPIUM 3 ML NEB NEB SCH ×4 (06:00→19:36)
[2022-10-22] MEDS: ALBUTEROL SULF 0.083% NEB SOLN 3 ML NEB NEB SCH ×3 (06:18→15:00)
[2022-10-22] MEDS: POLYETHYLENE GLYCOL 3350 17 GM PACK PO SCH ×2 (09:00→17:00)
[2022-10-22] MEDS: BENZONATATE 100 MG CAP PO SCH ×3 (09:00→21:40)
[2022-10-22] MEDS: ACETAMINOPHEN 325 MG TAB PO PRN (14:41)
[2022-10-22] MEDS: LEVOFLOXACIN 750MG/D5W 150ML 150 ML IV SCH (14:41)
[2022-10-22] MEDS: BUSPIRONE HCL 5 MG TAB PO SCH (17:37)
[2022-10-22] MEDS: FUROSEMIDE INJ 10 MG/ML 2 ML VIAL IV ONE ×2 (17:38→17:41)
[2022-10-22] MEDS: FLUTICASONE PROPIONATE NASAL SPRAY NS SCH (17:38)
[2022-10-22] MEDS ORDERED: ALBUTEROL SULFATE HFA 8GM INHALATION AEROSOL INH PRN (17:45)
[2022-10-22] MEDS: BUDESONIDE 0.5MG/2 ML NEB INH SCH (19:35)
[2022-10-23] VITALS (8 sets, daily range): BP systolic 127–141; BP diastolic 76–90; PULSE 18–121; RESP 18–22; TEMP 97.7–98; O2SAT 95–100
[2022-10-23] MEDS: ALBUTEROL/IPRATROPIUM 3 ML NEB NEB SCH ×2 (01:00→07:00)
[2022-10-23] MEDS: METHYLPREDNISOLONE SOD SUCC 40 MG/ML VIAL 1ML IV SCH ×2 (05:29→16:15)
[2022-10-23] MEDS: BUDESONIDE 0.5MG/2 ML NEB INH SCH (07:00)
[2022-10-23] MEDS: POLYETHYLENE GLYCOL 3350 17 GM PACK PO SCH ×2 (08:39→16:18)
[2022-10-23] MEDS: ACETAMINOPHEN 325 MG TAB PO PRN (08:40)
[2022-10-23] MEDS: BUSPIRONE HCL 5 MG TAB PO SCH ×2 (08:40→16:18)
[2022-10-23] MEDS: FLUTICASONE PROPIONATE NASAL SPRAY NS SCH ×2 (08:40→16:18)
[2022-10-23] MEDS: BENZONATATE 100 MG CAP PO SCH ×2 (08:41→15:00)
[2022-10-23 08:52] LABS: HEMATOCRIT 32.4 % (38.2-49.6); HEMOGLOBIN 9.6 g/dL (14.0-18.0); LYMPHOCYTES # (AUTO) 0.3 (1.0-3.2); LYMPHOCYTES % 2.8 % (18.0-39.1); MEAN CORPUSCULAR HEMOGLOBIN 29.2 pg (28-32); MEAN CORPUSCULAR HGB CONC 29.6 g/dL (31-35); MEAN CORPUSCULAR VOLUME 98.5 fL (81-99); MONOCYTES # (AUTO) 0.4 (0.2-0.8); MONOCYTES % 4.2 % (4.4-11.3); NEUTROPHILS # (AUTO) 8.4 (2.1-6.9); NEUTROPHILS % 92.7 % (38.7-80.0); PLATELET COUNT 100 x10e3/uL (140-360); RED BLOOD COUNT 3.29 x10e6/uL (4.3-5.7); RED CELL DISTRIBUTION WIDTH 15.3 % (11.7-14.4)
[2022-10-23 09:23] LABS: ANION GAP 12.5 mmol/L (8-16); CALCIUM 8.8 mg/dL (8.4-10.2); CREATININE, SERUM 0.59 mg/dL (0.72-1.25); POTASSIUM 3.5 mmol/L (3.5-5.1)
[2022-10-23] MEDS ORDERED: SALINE 0.65% NAS SOLN 1 SPRAY BTL PRN (10:00)
[2022-10-23] MEDS ORDERED: ACETAZOLAMIDE SODIUM 500 MG/VIAL IV ONE (11:00)
[2022-10-23] MEDS ORDERED: DEXTROSE 5% 1,000 ML IV ONE (11:00)
[2022-10-23] MEDS: LEVOFLOXACIN 750MG/D5W 150ML 150 ML IV SCH (16:15)
== END 2022-10-23 18:42 | DRG 190 ==
LOC: ER 10:03 → ERHOLD 15:58 → MED/SURG3 20:23 → OBSVTOIN 10-23 07:56
PROVIDERS: ADMIT Family Medicine; ATTEND Family Medicine
DX: J44.0 Chronic obstructive pulmonary disease with (acute) lower respiratory infection (principal); J96.22 Acute and chronic respiratory failure with hypercapnia; E44.0 Moderate protein-calorie malnutrition; R64 Cachexia; Z68.1 Body mass index [BMI] 19.9 or less, adult; I25.10 Atherosclerotic heart disease of native coronary artery without angina pectoris; R07.9 Chest pain, unspecified; R91.8 Other nonspecific abnormal finding of lung field; E78.5 Hyperlipidemia, unspecified; Z99.81 Dependence on supplemental oxygen; I25.2 Old myocardial infarction; Z87.891 Personal history of nicotine dependence
CPT/HCPCS: 36415; 71045; 71260; 80048; 80053; 83880; 84484; 85025; 85379; 93005; 94640; 94664; 94760; 94799; 99285; G0378; J1940; J2920; J2930; J7030; J7070; Q9967